=== PATIENT | female | born 2000 | race Two or more races ===

== ENCOUNTER 2019-07-05 23:19 | Emergency (ER) | payer BC ==
[2019-07-05] MEDS ORDERED: Naproxen TAB* 250 MG PO ONE (23:36)
--- NOTE | 2019-07-06 00:45 | ED ---
Lower Extremity - HPI Summary HPI Summary: 19-year-old female presents to emergency room with complaints of left ankle pain. States just prior to arrival she was walking and her foot slipped off a curb causing an inversion injury to the ankle. Complains of pain to the lateral left ankle. States she has been unable to bear any weight since the time of the injury. Denies any numbness or tingling. - History of Current Complaint Chief Complaint: EDExtremityLower Stated Complaint: L ANKLE INJURY PER PT Time Seen by Provider: 07/05/19 23:33 Hx Obtained From: Patient Pain Intensity: 8 - Allergies/Home Medications Allergies/Adverse Reactions: Allergies Allergy/AdvReac Type Severity Reaction Status Date / Time thomson Allergy Itching Verified 07/05/19 23:23 apples Allergy Itching Uncoded 07/05/19 23:23 peaches Allergy Itching Uncoded 07/05/19 23:23 PMH/Surg Hx/FS Hx/Imm Hx Previously Healthy: Yes - Denies significant PMH - Surgical History Surgical History: None Infectious Disease History: No Infectious Disease History: Denies: Traveled Outside the [place] in Last 30 Days - Family History Known Family History: Positive: Non-Contributory - Social History Occupation: Student Lives: Dormitory/Roommates Alcohol Use: Rare Substance Use Type: Reports: None Smoking Status (MU): Never Smoked Tobacco Review of Systems Constitutional: Negative Cardiovascular: Negative Respiratory: Negative Gastrointestinal: Negative Genitourinary: Negative Musculoskeletal: Other - See HPI Negative: Bruising Neurological: Negative All Other Systems Reviewed And Are Negative: Yes Physical Exam - Summary Physical Exam Summary: GENERAL APPEARANCE: Well developed, well nourished, alert and cooperative, and appears to be in no acute distress. CARDIAC: Normal S1 and S2. No S3, S4 or murmurs. Rhythm is regular. There is no peripheral edema, cyanosis or pallor. Extremities are warm and well perfused. Capillary refill is less than 2 seconds. Peripheral pulses intact. LUNGS: Clear to auscultation without rales, rhonchi, wheezing or diminished breath sounds. ABDOMEN: Positive bowel sounds. Soft, nondistended, nontender. No guarding or rebound. No masses or hepatosplenomegally. MUSKULOSKELETAL: Normal muscular development. EXTREMITIES: Tenderness over the left lateral malleolus with mild edema and no gross deformity or ecchymosis noted. Full range of motion with discomfort noted with inversion. Circulation and sensation intact. SKIN: Skin normal color, texture and turgor with no lesions or eruptions. Triage Information Reviewed: Yes Vital Signs On Initial Exam: Initial Vitals Temp Pulse Resp BP Pulse Ox 98.3 F 90 18 121/97 100 07/05/19 23:20 07/05/19 23:20 07/05/19 23:20 07/05/19 23:20 07/05/19 23:20 Vital Signs Reviewed: Yes Diagnostics - Vital Signs Vital Signs Temp Pulse Resp BP Pulse Ox 07/05/19 23:20 98.3 F 90 18 121/97 100 - Laboratory Lab Statement: Any lab studies that have been ordered have been reviewed, and results considered in the medical decision making process. Lower Extremity Course/Dx - Course Course Of Treatment: 19-year-old female presents to emergency room with complaints of left ankle pain. States just prior to arrival she was walking and her foot slipped off a curb causing an inversion injury to the ankle. Complains of pain to the lateral left ankle. States she has been unable to bear any weight since the time of the injury. Denies any numbness or tingling. Afebrile. Vital signs stable. Patient had tenderness over the left lateral malleolus with mild edema and no gross deformity or ecchymosis noted. Full range of motion with discomfort noted with inversion. Circulation and sensation intact. She was given naproxen 500 mg PO in the emergency room for pain. Preliminary x-ray showed no acute fracture or dislocation. Results reviewed with the patient. She was placed in an Albert wrap and gel splint and provided crutches to be nonweightbearing for the next 2 days followed by progressive increase in weightbearing as tolerated. Recommending conservative treatment for a left ankle sprain including [id number] analgesics and RICE. She is to follow-up with orthopedic surgery in 7 days if symptoms are not improving. Anticipatory guidance and warning symptoms were reviewed with the patient. Verbalizes understanding and agrees with plan of care. - Diagnoses Differential Diagnosis/HQI/PQRI: Positive: Contusion, Dislocation, Fracture ( Closed), Sprain Provider Diagnoses: Left ankle sprain Discharge ED - Sign-Out/Discharge Documenting (check all that apply): Patient Departure Patient Received Moderate/Deep Sedation with Procedure: No - Discharge Plan Condition: Stable Disposition: HOME Patient Education Materials: Ankle Sprain (ED), Crutch Instructions (ED), Ankle Stirrup Splint (ED) Referrals: Ric Cedeno MD [Medical Doctor] - Additional Instructions: The x-ray performed in the clinic today showed no evidence of a fracture. The x -ray will be reviewed by the radiologist in the morning and we will contact you if they see anything that would change her plan of care. Rest the ankle as much as possible. Use the crutches that were provided to you to be nonweightbearing for the next 2 days then you may slowly increase weightbearing as tolerated. Use the Albert wrap that was applied in the emergency room to help reduce swelling and wear the gel splint for support until you are pain free. You may remove to shower and sleep but should wear at all other times. Apply ice to the affected area for 15-20 minutes at least 4 times a day to help with the pain and swelling. Elevate the foot to help reduce swelling. Take acetaminophen (Tylenol) or ibuprofen (Advil, Motrin) according to directions as needed for pain. Follow up with orthopedic surgery in 7 days if symptoms do not improve. Seek immediate medical attention if you have severe pain not managed with pain medication, you are unable to walk or bear any weight, develop numbness or tingling in the foot or toes, or have any worsening of symptoms. - Billing Disposition and Condition Condition: STABLE Disposition: Home
[2019-07-06 01:10] VITALS: BP 121/78
== END 2019-07-06 01:07 | disposition home or self-care (01) ==
LOC: ED 23:19
DX: S93.402A Sprain of unspecified ligament of left ankle, initial encounter (principal); W18.40XA Slipping, tripping and stumbling without falling, unspecified, initial encounter; Y92.480 Sidewalk as the place of occurrence of the external cause
CPT/HCPCS: 99282; A9270-GY